=== PATIENT | male | born 1980 | race Caucasian/White ===

== ENCOUNTER 2022-06-18 22:55 | Emergency (ER) | payer MEDICAID ==
[2022-06-18] MEDS ORDERED: Ketorolac 30 MG/ML SDV IM ONE (23:28)
[2022-06-18] MEDS ORDERED: Acetaminophen 500 MG Tab PO ONE (23:29)
[2022-06-18] MEDS ORDERED: Ondansetron 4 MG Tab.DIS PO ONE (23:39)
[2022-06-18] MEDS ORDERED: Doxycycline 100 MG Tab PO ONE (23:41)
[2022-06-18] MEDS ORDERED: cefTRIAXone 1 GM Vial IM ONE (23:41)
[2022-06-18] MEDS ORDERED: Azithromycin 500 MG Tab PO ONE (23:56)
[2022-06-19] MEDS ORDERED: Gentamicin 40 MG/ML 2 ML Vial IM SCH ×2 (00:10→09:00)
[2022-06-19] MEDS ORDERED: HYDROmorphone 2 MG/ML SDV IM ONE (00:28)
[2022-06-21 01:11] LABS: CHLAMYDIA TRACHOMATIS, NAA Negative (Negative); NEISSERIA GONORRHOEAE, NAA Negative (Negative)
== END 2022-06-19 01:25 | disposition home or self-care (01) ==
LOC: FB.ED 22:55
DX: N45.3 Epididymo-orchitis (principal); F17.210 Nicotine dependence, cigarettes, uncomplicated; Z88.0 Allergy status to penicillin
CPT/HCPCS: 81001; 87086; 87491; 87591; 96372; 99284; A9270; J1170; J1580; J1885; Q0162